=== PATIENT | male | born 1980 | race Caucasian/White ===

== ENCOUNTER 2019-03-20 11:49 | Emergency (ER) | payer MEDICAID ==
[~2019-03-20] VITALS: Wt 127.0 kg
[2019-03-20 11:55] VITALS: BP 150/87; PULSE 91; RESP 20
--- NOTE | 2019-03-20 12:19 | QN ---
Documentation Comment Patient brought in by ambulance and seen immediately. Medical screening exam was initiated. Patient will be sent to the waiting room for triage and vital signs. Patient will be seen by another provider. CYNDY ABAD MD Mar 20, 2019 12:19
[2019-03-20] MEDS ORDERED: BLOO1EAC85 MC (14:01)
[2019-03-20] MEDS ORDERED: BLOO-1101 MC (14:01)
--- NOTE | 2019-03-21 09:37 | ERD ---
ER Documentation Chief Complaint Chief Complaint VERTIGO SYMPTOMS WITH MILD HEADACHE AND NO NEURO DEF. NO TRAUMA . HPI This is a 38 yo male patient who presents with c/o intermittent nausea, dizziness, confusion. This has happened 2x this week, resolved with drinking juice. Denies cp, heart palpatations, no sob, no paraesthesia. No recent illness. Patient has been dieting and on no carb diet and going for long periods without any food intake, only water or coffee. States he does not currently have PMD due to no insurance. Has had meds for HTN in the past, denies hx of diabetes. Alert, ambulatory, appropriate at time of evaluation. Pt declines blood work due to expense. ROS All systems reviewed and are negative except as per history of present illness. Medications Home Meds Active Scripts Blood-Glucose Meter (BLOOD GLUCOSE MONITORING) 1 Each Kit, EACH MC BID PRN for HYPOGLYCEMIA (BS<70), #100 Prov:MANA GUIDRY NP 03/20/19 Blood-Glucose Meter (Blood Glucose Meter) 1 Each Each, EACH , #1 Prov:MANA GUIDRY NP 03/20/19 PMhx/Soc Medical and Surgical Hx: pt denies Medical Hx, pt denies Surgical Hx Hx Alcohol Use: No Hx Substance Use: No Hx Tobacco Use: No Smoking Status: Never smoker FmHx Family History: No diabetes, No coronary disease, No other Physical Exam Vitals Vital Signs Date Temp Pulse Resp B/P (MAP) Pulse Ox O2 O2 Flow FiO2 Time Delivery Rate 03/20/19 98.1 91 20 150/87 98 11:55 (108) Physical Exam Const: No acute distress Head: Atraumatic Eyes: Normal Conjunctiva, PERRL, EOMI, no nystagmus ENT: Normal External Ears, Nose and Mouth. Pharynx pink, moist, no lesions, petechiae, exudate Neck: Full range of motion. No meningismus. No lymphadenopathy Resp: Clear to auscultation bilaterally Cardio: Regular rate and rhythm, no murmurs Abd: Soft, non tender, non distended. Normal bowel sounds, no hepato or splenomegaly Skin: No petechiae or rashes Back: No midline or flank tenderness, no CVT Ext: No cyanosis, or edema Neur: Awake and alert, CN II-XII intact, sensation intact BL, neg Romberg, neg [id number], no pronator drift, clear speech, steady gait, intravenous therapy nurse strong bl Psych: Normal Mood and Affect Results 24 hrs Laboratory Tests Test 03/20/19 14:25 03/20/19 14:32 Bedside Glucose 137 mg/dL Bedside Urine pH (LAB) 6.0 Bedside Urine Protein (LAB) Negative Bedside Urine Glucose (UA) Negative Bedside Urine Ketones (LAB) Negative Bedside Urine Blood Trace-intact Bedside Urine Nitrite (LAB) Negative Bedside Urine Leukocyte Esterase (L Negative Procedures/MDM PROCEDURES/MDM EKG: Read by Dr. Billings, attending physician. EKG shows NSR, No arrhythmias, acute ST elevations or T wave changes were noted. LAB INTERPRETATION: UA negative for infection, dehydration, ketoacidosis, glucosuria Pt declines blood work at this time, prefers to see PMD. POC blood glucose finger stick taken after pt has had 4 juices in ER= 137, pt provided with sandwich -Medications: Declines. States dizziness and nausea have resolved. MDM: This is a 38 yo male patient who presents with concern over dizziness that has occurred 2x this week. Pt self-treated with juice with complete resolution of symptoms. He is currently on a no carb and fasting type diet. Most likely he has been experiencing episodes of hypoglycemia. He otherwise looks well, no pain, no n/v/diarrhea, no fevers, no paraesthesia. Low suspicion for CVA, TIA, cardiac etiology, diabetes, vertigo. Patient has been instructed on avoiding more than 4-6 hours without some nutrition of a protein/carb snack or meal, include fruits and vegetables in diet, increase hydration to 2 L/day, and establish care with PMD for surveillance and further evaluation. Pt was instructed on signs of stroke, RI, and red flags that would indicated an emergent condition. Patient was instructed to return to ER immediately with worsening or changing symptoms. DISPOSITION and PLAN: The patient has been discharge home to follow-up with community physician. Departure Diagnosis: Primary Impression: Dizziness Additional Impression: Hypoglycemia Condition: Stable Patient Instructions: Possible Causes of Dizziness or Fainting, Hypoglycemia, Non Diabetic Referrals: COMMUNITY CLINICS YOU HAVE RECEIVED A MEDICAL SCREENING EXAM AND THE RESULTS INDICATE THAT YOU DO NOT HAVE A CONDITION THAT REQUIRES URGENT TREATMENT IN THE EMERGENCY DEPARTMENT. FURTHER EVALUATION AND TREATMENT OF YOUR CONDITION CAN WAIT UNTIL YOU ARE SEEN IN YOUR DOCTORS OFFICE WITHIN THE NEXT 1-2 DAYS. IT IS YOUR RESPONSIBILITY TO MAKE AN APPOINTMENT FOR FOLOW-UP CARE. IF YOU HAVE A PRIMARY DOCTOR --you should call your primary doctor and schedule an appointment IF YOU DO NOT HAVE A PRIMARY DOCTOR YOU CAN CALL OUR PHYSICIAN REFERRAL HOTLINE AT IF YOU CAN NOT AFFORD TO SEE A PHYSICIAN YOU CAN CHOSE FROM THE FOLLOWING OUR [facility] [id number] [facility] [address] [facility] [address] [facility] [address] [facility] [address] [facility]. [facility]. [address] Additional Instructions: Thank you very much for allowing us to participate in your care. Your health and safety is our top priority at [facility]. Call your primary care doctor TOMORROW for an appointment during the next 2-4 days and bring all the information and medications prescribed. Have prescriptions filled and follow precisely the directions on the label. If the symptoms get worse and your provider is unavailable, return to the Emergency Department immediately. FOLLOW-UP WITH YOUR PRIMARY CARE DOCTOR FOR FURTHER EVALUATION. EAT WELL- BALANCED MEALS EVERY 4-6 HOURS. INCREASE HYDRATION TO 1 TO 2 L/DAY. RETURN TO THE EMERGENCY ROOM WITH VOMITING, FEVER, REPEAT WEAKNESS OR DIZZINESS. MANA GUIDRY NP Mar 21, 2019 09:37
== END 2019-03-20 15:34 | disposition home or self-care (01) ==
LOC: FTE 11:49
DX: E16.2 Hypoglycemia, unspecified (principal); I10 Essential (primary) hypertension
CPT/HCPCS: 81003; 82962; 93005; Z7502